=== PATIENT | male | born 1975 | race Caucasian/White ===

== ENCOUNTER 2016-04-02 20:47 | Emergency (ER) | payer MEDICAID ==
--- NOTE | ~2016-04-02 | EKG ---
PATIENT: KEVIN HUMPHREYS UNIT #: [id number] Ventricular Rate: 97 BPM Atrial Rate: 97 BPM P-R Interval: 162 ms QRS Duration: 88 ms Q-T Interval: 370 ms QTC Calculation(Bezet): 469 ms P [place]: 45 degrees Calculated R [place]: 33 degrees Calculated T [place]: 30 degrees Diagnosis Line: Normal sinus rhythm Diagnosis Line: Normal ECG Diagnosis Line: Diagnosis Line: Confirmed by JAKE AMBROSIO MD ([id number]) on 04/03/2016 Diagnosis Line: 6:03:34 PM INTERPRETING MD: DAILY KINCAID
--- NOTE | ~2016-04-02 | CR63 ---
[facility] A Service of [facility] & [facility] RADIOLOGY TEXT RESULTS PATIENT: KEVIN HUMPHREYS LOCATION: SED : 77 UNIT #: [id number] AGE: [address]: Andreas Xiong MD SEX: M ORDER DR: [id number] [place] [id number] MR#: [id number] #: [id number] NAME: KEVIN HUMPHREYS. : 1975 SEX: M STUDY DATE/TIME: 04/02/2016 20:18 UNIT: SED ROOM: STUDY DESCRIPTION: CR Chest 2 View Attending Physician: Andreas Xiong M.D. Ordering Physician: Andreas Xiong M.D. Primary Care Physician: Alexus Reis M.D. MEDICAL IMAGING REPORT This report is preliminary unless electronic signature is present. EXAM Two-view chest HISTORY 40-year-old male with or alcohol withdrawal, shaking. COMPARISON 01/26/2016 FINDINGS 2 views of the chest demonstrates mild pulmonary hyperinflation suggesting underlying emphysema. Mild prominence of the interstitial markings may indicate fibrosis. No acute airspace disease or consolidation. No effusions. Heart, mediastinum, great vessels and bony thorax unremarkable. IMPRESSION Pulmonary parenchymal changes compatible mild emphysema and fibrosis. No acute findings. Dictated by... Karol Sloan M.D. THIS IS AN ELECTRONICALLY VERIFIED REPORT Karol Sloan M.D. at 04/03/2016 5:03 PM Gregg TD: 04/03/2016 08:11 JOB #: [id number] MEDICAL IMAGING REPORT
[2016-04-02 20:44] LABS: HEMATOCRIT 38.6 % (38.0-50.0); HEMOGLOBIN 13.3 gm/dL (13.0-16.0); LYMPHOCYTE# 0.5 X10e3 (1.0-3.5); NEUTROPHIL# 5.3 X10e3 (1.5-7.1); RED BLOOD COUNT 4.12 X10e (3.90-5.60)
[2016-04-02 20:46] LABS: BASOPHIL% 0.6 % (0-2.5); EOSINOPHIL% 0.3 % (0.0-7.0); LYMPHOCYTE% 7.2 % (17.0-45.0); MEAN CELL VOLUME 93.8 FL (83-96); MEAN CORPUSCULAR HEMOGLOBIN 32.4 PG (28-34); MEAN CORPUSCULAR HGB CONC 34.5 g/dL (30-36); MEAN PLATELET VOLUME 9.2 FL (6.5-11.5); MONOCYTE% 13.9 % (3.0-12.0); RED CELL DISTRIBUTION WIDTH 18.3 % (11.0-15.5); WHITE BLOOD COUNT 6.9 X10e3 (4.0-10.5)
[2016-04-02 20:47] LABS: DIFF IND NO; PLATELET COUNT 37 X10e3 (140-420)
[~2016-04-02 20:47] MED LIST: ASPIRIN81 MG PO; CUBICIN IV; GLYBURIDE2.5 M1 PO; MAGOX 400400 MG PO; MULTI-VITAMIN1 EAC1 PO; NO MEDICATIONS; ONE-A-DAY WEIGH1 TAB PO; PENTOXIFYLINE100 GM MC; SLEEPING TABLET25 M1 PO; ZINC SULFATE220 M1 PO
[2016-04-02 21:02] LABS: ALKALINE PHOSPHATASE 219 U/L (32-92); ALT (SGPT) 80 U/L (10-40); AST (SGOT) 151 U/L (10-42); BILIRUBIN, DIRECT 1.7 mg/dL (0.0-0.2); BILIRUBIN,INDIRECT 1.7 mg/dL (0.0-0.9); BILIRUBIN,TOTAL 3.4 mg/dL (0.2-2.0); BLOOD UREA NITROGEN 7 mg/dL (9-23); BUN/CREATININE RATIO 11.66; CALCIUM SERUM 9.1 mg/dL (8.4-10.2); CARBON DIOXIDE 25 mmol/L (22-31); CHLORIDE 90 mmol/L (100-111); CPK (CREATINE PHOSPHOKINASE) 239 IU/L (36-174); CREATININE SERUM 0.6 mg/dL (0.6-1.4); GLOM FILT RATE Estimated ABOVE60 mL/min (>60); GLUCOSE FASTING 115 mg/dL (70-110); LIPASE 77 U/L (22-51); MAGNESIUM 1.2 mg/dL (1.6-3.0); POTASSIUM 3.6 mmol/L (3.5-5.1); SODIUM 129 mmol/L (135-145)
[2016-04-02 21:05] LABS: ALCOHOL BLOOD <5 mg/dL (0)
[2016-04-02 21:09] LABS: POC - CKMB 1.9 ng/mL (0.0-7.9); POC - TROPONIN <0.05 ng/mL (<=0.05)
[2016-04-02 21:37] LABS: URINE SOURCE CLEAN CATCH
[2016-04-02 21:40] LABS: URINE APPEARANCE CLEAR; URINE BILIRUBIN NEG (NEG); URINE BLOOD 1+ (NEG); URINE COLOR YELLOW; URINE LEUKOCYTE ESTERASE NEG (NEG); URINE NITRATE NEG (NEG); URINE PROTEIN 1+ (NEG); URINE UROBILINOGEN >=8.0 MG/DL (NORM)
[2016-04-02 21:47] LABS: MICRO INDICATED? YES; URINE GLUCOSE 50 MG/DL (NORM); URINE KETONE 2+ (NEG)
[2016-04-02 21:48] LABS: CULTURE INDICATED? NO; URINE BACTERIA NEG (NEG); URINE SQUAMOUS EPITHELIAL CELL FEW /[HPF]; URINE WBC 0-2 /[HPF] (0-5)
[2016-04-02 21:51] LABS: AMPHETAMINE NEG (NEG); BARBITURATES NEG (NEG); BENZODIAZEPINES NEG (NEG); COCAINE NEG (NEG); MARIJUANA NEG (NEG); OPIATES NEG (NEG); TRICYCLIC ANTIDEPRESSANTS NEG (NEG); U METHADONE NEG (NEG)
== END 2016-04-03 09:28 ==
LOC: SED 20:47
PROVIDERS: Emergency Medicine
DX: F10.239 Alcohol dependence with withdrawal, unspecified (principal); E11.9 Type 2 diabetes mellitus without complications; E86.0 Dehydration; D69.6 Thrombocytopenia, unspecified; E83.42 Hypomagnesemia
CPT/HCPCS: 36415; 71020; 80048; 80076; 80307; 81003; 82550; 82553; 82947; 83690; 83735; 83874; 84484; 85025; 93005; 96361; 96365; 96374; 96375; 99284; G0480; J2060; J3411; J3475

== ENCOUNTER 2016-04-03 10:27 | Inpatient (IN) | payer MEDICAID ==
--- NOTE | ~2016-04-03 | PA ---
Unit #: [id number] #: [id number] Patient: KEVIN HUMPHREYS [id number] [facility] [address] [place] [address] [id number] I MR#: [id number] NAME: KEVIN HUMPHREYS. ROOM: [facility] Age: 40 Sex: M Admission Date: 04/03/2016 : 1975 Date of Assessment: 04/03/2016 Attending Physician: Flavia Boles M.D. Admitting Physician: Flavia Boles M.D. Primary Care Physician: Alexus Reis M.D. PSYCHIATRIC ASSESSMENT DATE OF SERVICE 04/03/2016. IDENTIFYING DATA Mr. James Bahena is a 40-year-old, single, male, who is a resident of [place], [place] and was transferred to from [facility]. CHIEF COMPLAINT "I want treatment for alcohol abuse." HISTORY OF PRESENT ILLNESS Mr. James Bahena is a 40-year-old male, who was transferred to us from [facility] where he presented to the emergency room stating that he wants detox from alcohol and had a CIWA score of 16 indicating significant withdrawal from alcohol. He states that he has been drinking 6 or more beers a day and has been drinking this amount for about a month and a half and reports 9 month sobriety, ending about a month and a half ago and reports significant withdrawal symptoms including abdominal cramps, visible tremors, cold sweats, headaches, vomiting, anxiety, flushed face, restlessness, irritability, inability to perform activities of daily living, and poor personal hygiene. He reports history of withdrawal seizures and does endorse some significant depression, anxiety, irritability, and restlessness and denies any suicidal ideations, intent, or plan. SUBSTANCE ABUSE HISTORY The patient reports history of alcohol dependence. He reports that he has been drinking 16 plus beers a day and has been drinking since he was 15 years old and has a history of sobriety in the past. He denies any drug abuse. PAST PSYCHIATRIC HISTORY The patient has a history of inpatient [facility] past, but currently is not active in any treatment program, is not seeing a psychiatrist, not taking any psychotropic medications. PAST MEDICAL HISTORY Diabetes mellitus. ALLERGIES No known medication allergies. Unit #: [id number] #: [id number] Patient: KEVIN HUMPHREYS PERSONAL AND SOCIAL HISTORY A 40-year-old male, who reports that he is single, unemployed, and lives at home with his sister and has poor social support system. MENTAL STATUS EXAMINATION Middle-aged male, who was casually dressed with fair personal hygiene, appears to be in no acute distress or discomfort. He was awake and alert on interaction with intact orientation to time, place, and person. His mood was anxious and depressed with a congruent affect. His speech was slow and restricted in content. His thought processes were disorganized with some looseness of associations and flight of ideas. His insight and judgment remain significantly impaired. DIAGNOSTIC IMPRESSION Psychiatric: Alcohol dependence, moderate and acute withdrawals; alcohol-induced mood disorder. Medical: Diabetes mellitus. Stressors: Moderate psychosocial stressors. TREATMENT PLAN 1. The patient has presented with a history of substance abuse and mood disorder, and has been decompensating and will need inpatient hospitalization for detoxification, safety, and stabilization. We will start him on alcohol detox protocol. We will closely monitor for any worsening withdrawal symptoms. 2. Supportive therapy was provided to the patient. 3. Safe, structured, and nourishing environment will be provided. ESTIMATED LENGTH OF STAY 5 to 7 days. ABILITY TO HELP SELF Limited. WILLINGNESS TO HELP SELF The patient appears to be willing to help self. STRENGTHS 1. Communicative. 2. Cooperative. PROBLEMS 1. Chronic dysphoric symptoms. 2. Chronic chemical dependency. 3. Poor social support system. DISCHARGE CRITERIA This will be contingent upon the patient's ability to go through detox without having any significant withdrawal symptoms and his ability to stay safe to himself, particularly after discharge from the hospital. Dictated by... Flavia Boles M.D. IAA/modl Unit #: [id number] #: [id number] Patient: KEVIN HUMPHREYS TD: 04/04/2016 07:34 JOB #: [id number] PSYCHIATRIC ASSESSMENT X Afaq,Irfan A MD X PSYCHIATRIC ASSESSMENT
--- NOTE | ~2016-04-03 | PN ---
Unit #: [id number] #: [id number] Patient: KEVIN HUMPHREYS [id number] [facility] [address] [place] [address] [id number] I MR#: [id number] NAME: KEVIN HUMPHREYS. ROOM: [facility] Age: 40 Sex: M Admission Date: 04/03/2016 : 1975 Attending Physician: Flavia Boles M.D. Admitting Physician: Flavia Boles M.D. Primary Care Physician: Velma Mcbride PROGRESS NOTES DATE April 04, 2016 DISCUSSION Mr. James Bahena is a 40-year-old male, who was seen today and chart was reviewed and the case was discussed with the staff. He was seen to be anxious, withdrawn, unkept, and disheveled and seclusive to himself and he expressed discomfort as he goes through the detox. Meanwhile, he has been taking the medications and tolerating them fairly well with no reported side effects. MENTAL STATUS EXAMINATION Young male, who was casually dressed with marginal personal hygiene and appears to be in no acute distress or discomfort. He was awake and alert with impaired attention and concentration. His mood is anxious with a congruent affect. His speech is slow and restricted in content. His thought processes are disorganized with some looseness of associations and paranoid ideations. His insight and judgment remain significantly impaired. TREATMENT PLAN 1. We will continue him on his current medications and treatment protocol, and will monitor his response to the medications, and make further adjustments as needed. 2. We will continue to followup. Dictated by... Velma Hubbard/carlene TD: 04/05/2016 12:36 JOB #: [id number] Unit #: [id number] #: [id number] Patient: KEVIN HUMPHREYSTISHA PROGRESS NOTES X Flavia Boles MD PROGRESS NOTE
--- NOTE | ~2016-04-03 | PN ---
Unit #: [id number] #: [id number] Patient: KEVIN HUMPHREYS [id number] [facility] [address] [place] [address] [id number] I MR#: [id number] NAME: KEVIN HUMPHREYS. ROOM: [facility] Age: 40 Sex: M Admission Date: 04/03/2016 : 1975 Attending Physician: Flavia Boles M.D. Admitting Physician: Flavia Boles M.D. Primary Care Physician: Alexus Reis M.D. [facility] PROGRESS NOTES DATE OF SERVICE: 04/07/2016 SUBJECTIVE Mr. James Bahena is a 40-year-old male who was seen today and chart was reviewed, and case was discussed with the staff. He has been in acute delirium tremens as part of his detox and he was confused, anxious, restless, disorganized, actively hallucinating, unable to give any meaningful conversation and has been exhibiting poor personal hygiene and his whole room has significant odor where you cannot even enter his room. MENTAL STATUS EXAMINATION Young male who was casually dressed with a poor personal hygiene and appears to be in slight distress or discomfort. He was awake and alert with impaired attention. Concentration seemed confused and disoriented to time, place, and person. His mood was anxious with a congruent affect. His speech is slow and restricted in content. His thought processes were disorganized with some looseness of associations, paranoid ideations, and auditory hallucinations and visual hallucinations. His insight and judgment remain significantly impaired. TREATMENT PLAN 1. We will continue him on his current medications and treatment protocol. We will maintain the detox medications. 2. We will continue to follow up. Dictated by... Flavia Boles M.D. IAA/modl TD: 04/08/2016 01:38 JOB #: [id number] Unit #: [id number] #: [id number] Patient: KEVIN HUMPHREYS PROGRESS NOTES X Flavia Boles MD X PROGRESS NOTE
--- NOTE | ~2016-04-03 | PN ---
Unit #: [id number] #: [id number] Patient: KEVIN HUMPHREYS [id number] [facility] [address] [place] [address] [id number] I MR#: [id number] NAME: KEVIN HUMPHREYS ROOM: P206 Age: 40 Sex: M Admission Date: 04/03/2016 : 1975 Attending Physician: Flavia Boles M.D. Admitting Physician: Flavia Boles M.D. Primary Care Physician: Velma Mcbride PROGRESS NOTES DATE OF SERVICE: 04/09/2016 SUBJECTIVE Mr. Bahena is a 40-year-old male who was seen today and chart was reviewed, and case was discussed with the staff. He has been anxious, withdrawn, and rather seclusive to himself. Meanwhile, he has been cooperative with treatment recommendations and has been taking the medications and tolerating them fairly well with no reported side effects. MENTAL STATUS EXAMINATION Young male who was casually dressed with a poor personal hygiene and appears to be in no acute distress or discomfort. He was awake and alert with intact orientation. His mood was anxious with a congruent affect. He denies any suicidal or homicidal ideations. His insight and judgment remain slightly impaired. TREATMENT PLAN We will continue him on his current treatment protocol. We will monitor his response and make further adjustments as needed. Dictated by... Velma Hubbard/mia TD: 04/11/2016 03:12 JOB #: [id number] [facility] PROGRESS NOTES X Flavia Boles MD PROGRESS NOTE
--- NOTE | ~2016-04-03 | PN ---
Unit #: [id number] #: [id number] Patient: KEVIN HUMPHREYS [id number] [facility] [address] [place] [address] [id number] I MR#: [id number] NAME: KEVIN HUMPHREYS. ROOM: [facility] Age: 40 Sex: M Admission Date: 04/03/2016 : 1975 Attending Physician: Flavia Boles M.D. Admitting Physician: Flavia Boles M.D. Primary Care Physician: Vemla Mcbride PROGRESS NOTES DATE April 05, 2016 DISCUSSION Mr. James Bahena is a 40-year-old male, with substance abuse and mood disorder, who was seen today and chart was reviewed and the case was discussed with the staff. Staff reports that the patient has been anxious, withdrawn, and rather seclusive to himself. Meanwhile, he has been cooperative with the treatment recommendations and he has been taking the medications and tolerating them fairly well. MENTAL STATUS EXAMINATION Middle-aged male, who was casually dressed with marginal personal hygiene and appears to be in no acute distress or discomfort. He was awake and alert with impaired attention and concentration. His mood was anxious with a congruent affect. His speech is slow and restricted in content. His thought processes are disorganized with some looseness of associations. His insight and judgment remain significantly impaired. TREATMENT PLAN We will continue him on his current medications and detox protocol, and will monitor his response, and make further adjustments as needed. Dictated by... Velma Hubbard/carlene TD: 04/06/2016 12:31 JOB #: [id number] Unit #: [id number] #: [id number] Patient: KEVIN HUMPHREYSTISHA PROGRESS NOTES X Flavia Boles MD PROGRESS NOTE
--- NOTE | ~2016-04-03 | PN ---
Unit #: [id number] #: [id number] Patient: KEVIN HUMPHREYS [id number] [facility] [address] [place] [address] [id number] MR#: [id number] NAME: KEVIN HUMPHREYS ROOM: P206 Age: 40 Sex: M Admission Date: 04/03/2016 : 1975 Attending Physician: Flavia Boles M.D. Admitting Physician: Flavia Boles M.D. Primary Care Physician: Velma Mcbride PROGRESS NOTES DATE OF SERVICE: 04/11/2016 SUBJECTIVE Mr. James Bahena is a 40-year-old male, who was seen today and chart was reviewed and the case was discussed with the staff. He has been doing better and has been calm and cooperative and appears to be coming out of the detox without any complications. He has been taking the medications and tolerating them fairly well. MENTAL STATUS EXAMINATION Young male, who was casually dressed with fair personal hygiene, appears to be in no acute distress or discomfort. He was awake and alert on interaction with intact orientation. His mood was anxious with a congruent affect. He denies any suicidal or homicidal ideations. His insight and judgment remain slightly impaired. TREATMENT PLAN 1. We will continue him on his current medications and treatment protocol. We will monitor his response to the medications and make further adjustments as needed. 2. We will continue to follow up. Dictated by... Velma Hubbard/mia TD: 04/13/2016 10:04 JOB #: [id number] [facility] PROGRESS NOTES X Flavia Boles MD PROGRESS NOTE
--- NOTE | ~2016-04-03 | HP ---
Unit #: [id number] #: [id number] Patient: KEVIN HUMPHREYS [id number] [place] [address] [id number] MR#: [id number] NAME: KEVIN HUMPHREYS. ROOM: [facility] Age: 40 Sex: M Admission Date: 04/03/2016 : 1975 Attending Physician: Flavia Boles M.D. Admitting Physician: Flavia Boles M.D. Primary Care Physician: Alexus Reis M.D. HISTORY AND PHYSICAL HISTORY OF PRESENT ILLNESS Kevin is a 40 year old admitted to [address] [place] [address] because of his abuse of alcohol. He is detoxing. PAST MEDICAL HISTORY 1. Long history of alcohol abuse. 2. History of withdrawal seizures. 3. Diabetes mellitus. PAST SURGICAL HISTORY Nothing reported. ALLERGIES No known drug allergies. SOCIAL HISTORY Smokes less than one pack per day. Drinks a fifth of liquor on a daily basis. Denies illicit drug use. FAMILY HISTORY Medically noncontributory. REVIEW OF SYSTEMS CONSTITUTIONAL: No fever or chills. HEENT: Denies any sore throat, ear pain or runny nose. CARDIOVASCULAR: Denies chest pain, irregular heart rhythm or palpitations. CHEST: Denies shortness of breath or cough. No hemoptysis. GASTROINTESTINAL: Denies nausea, vomiting, diarrhea or chronic constipation. ENDOCRINE: Denies history of increased thirst or urination. No recent significant weight loss or gain. GENITOURINARY: Denies dysuria, frequency, or hematuria. SKIN: Denies any rashes. HEMATOLOGIC: Denies history of increased bleeding or bruising. MUSCULOSKELETAL: Denies any hot, swollen joints. No generalized muscle pain. NEUROLOGIC: Denies problems with vision or speech. No frequent, severe headaches. No numbness, tingling or weakness in any extremities. Denies loss of bladder or bowel control. CURRENT MEDICATIONS Unit #: [id number] #: [id number] Patient: KEVIN HUMPHREYS Detox protocol PHYSICAL EXAMINATION GENERAL: Alert, well-nourished, in no apparent distress. VITAL SIGNS: Blood pressure 158/96, heart rate 80, respirations 16, temperature 98.6. WEIGHT: 172 pounds. HEIGHT: 5'7". SKIN: Warm and dry without rash or lesion. HEENT: Normocephalic. TMs not viewed. Oral and nasal passages clear. Conjunctivae clear. Pupils equal, round and reactive to light and accommodation. Extraocular movements intact. NECK: Supple without lymphadenopathy or thyromegaly. HEART: Rate and rhythm is regular with a 3/6 blowing systolic murmur. LUNGS: Clear. ABDOMEN: Soft, nontender. : Not done. EXTREMITIES: No evidence of cyanosis, clubbing or edema. Moves all extremities without focal deficit. NEUROLOGICAL: Grossly within normal limits. Cranial Nerves: II: Visual murrieta are intact. III, IV AND : Extraocular movements are intact. Pupils are equal, round and reactive to light. V: Facial sensation is grossly normal. VII: Facial movements and expression are normal. VIII: Auditory acuity grossly intact. IX, X: Uvula is midline. Phonation is normal. XI: Patient shrugs shoulders and turns head normally. XII: Tongue protrudes in the midline. Sensory and Motor Function: Sensory and motor sensation is grossly normal. Motor: moves all extremities well. Coordination: Gait is normal. Deep Tendon Reflexes: Intact. IMPRESSION Psychiatric admission RECOMMENDATIONS PSYCHIATRIC: Per psychiatrist. MEDICAL: I see no contraindications to participating in facility's activities. MEDICAL PROGNOSIS Good. MEDICAL CONDITION Stable. Dictated by... Janette Lei P.A.-C. for Velma Lawrence/becca TD: 04/03/2016 22:28 JOB #: [id number] Unit #: [id number] #: [id number] Patient: KEVIN HUMPHREYS HISTORY AND PHYSICAL X Janette Lei HISTORY AND PHYSICAL
--- NOTE | ~2016-04-03 | PN ---
Unit #: [id number] #: [id number] Patient: KEVIN HUMPHREYS [id number] [facility] [address] [place] [address] [id number] I MR#: [id number] NAME: KEVIN HUMPHREYS ROOM: [facility] Age: 40 Sex: M Admission Date: 04/03/2016 : 1975 Attending Physician: Flavia Boles M.D. Admitting Physician: Flavia Boles M.D. Primary Care Physician: Velma Mcbride PROGRESS NOTES DATE April 06, 2016 DISCUSSION Mr. James Bahena is a 40-year-old male with alcohol dependence who was seen today and chart was reviewed and the case was discussed with the staff. Staff reports that the patient has not been doing good and has slowly started slipping into delirium tremens as he was seen to be anxious, unkept, disheveled, pacing the hallways and confused and disoriented and unable to carry on meaningful conversation and he was making statements that he left his car running outside and that he was later on seen to be actually hallucinating and was confused and disoriented and as such recommendation was made for stepping up the level of precautions as well as increasing the dosage of his Ativan and also adding antipsychotic therapy, and will monitor his response to treatment recommendations and make further adjustments as needed. Dictated by... Velma Hubbard/carlene TD: 04/07/2016 10:06 JOB #: [id number] [facility] PROGRESS NOTES X Flavia Boles MD PROGRESS NOTE
--- NOTE | ~2016-04-03 | PN ---
Unit #: [id number] #: [id number] Patient: KEVIN HUMPHREYS [id number] [facility] [address] [place] [address] [id number] MR#: [id number] NAME: KEVIN HUMPHREYS. ROOM: P206 Age: 40 Sex: M Admission Date: 04/03/2016 : 1975 Attending Physician: Flavia Boles M.D. Admitting Physician: Flavia Boles M.D. Primary Care Physician: Velma Mcbride PROGRESS NOTES DATE April 10, 2016 DISCUSSION Mr. Bahena is a 40-year-old male, who was seen today and chart was reviewed and the case was discussed with the staff. He has been anxious, withdrawn, and rather seclusive to himself. Meanwhile, he has been cooperative with the treatment recommendations and he has been taking the medications and tolerating them fairly well. MENTAL STATUS EXAMINATION Young male, who was casually dressed with fair personal hygiene and appears to be in no acute distress or discomfort. He was awake and alert on interaction with intact orientation. His mood is anxious with a congruent affect. He denies any suicidal or homicidal ideations, and also denies any auditory or visual hallucinations. His insight and judgment remain slightly impaired. TREATMENT PLAN 1. We will continue him on his current medications and treatment protocol, and will monitor his response to the medications, and make further adjustments as needed. 2. We will continue to followup. Dictated by... Velma Hubbard/carlene TD: 04/10/2016 12:12 JOB #: [id number] Unit #: [id number] #: [id number] Patient: KEVIN HUMPHREYS PROGRESS NOTES X Flavia Boles MD PROGRESS NOTE
--- NOTE | ~2016-04-03 | PN ---
Unit #: [id number] #: [id number] Patient: KEVIN HUMPHREYS [id number] [facility] [address] [place] [address] [id number] MR#: [id number] NAME: KEVIN HUMPHREYS. ROOM: P206 Age: 40 Sex: M Admission Date: 04/03/2016 : 1975 Attending Physician: Flavia Boles M.D. Admitting Physician: Flavia Boles M.D. Primary Care Physician: Velma Mcbride PROGRESS NOTES DATE April 08, 2016 DISCUSSION Mr. James Bahena is a 40-year-old male who was seen today and chart was reviewed and the case was discussed with the staff. He has been anxious, restless, unkept, disheveled, and tremulous and appeared to be making some progress but still having significant symptoms of delirium tremens and alcohol withdrawal syndrome. Meanwhile, he has been taking the medications and tolerating them fairly well. MENTAL STATUS EXAMINATION Young male, who was casually dressed with marginal personal hygiene and appears to be in no acute distress or discomfort. He was awake and alert with impaired attention and concentration. His mood is anxious with a congruent affect. His speech is slow and restricted in content. His thought processes are disorganized with some looseness of associations and paranoid ideations. His insight and judgment remain significantly impaired. TREATMENT PLAN 1. We will continue him on his current medications and treatment protocol, and will monitor his response to the medications, and make further adjustments as needed. 2. We will continue to followup. Dictated by... Velma Hubbard/carlene TD: 04/10/2016 12:05 JOB #: [id number] Unit #: [id number] #: [id number] Patient: KEVIN HUMPHREYS PROGRESS NOTES X Flavia Boles MD PROGRESS NOTE
--- NOTE | ~2016-04-03 | DS ---
Unit #: [id number] #: [id number] Patient: KEVIN HUMPHREYS [id number] [facility] [address] [place] [address] [id number] MR#: [id number] NAME: KEVIN HUMPHREYS. ROOM: P206 Age: 40 Sex: M Admission Date: 04/03/2016 : 1975 Discharge Date: 04/12/2016 Attending Physician: Flavia Boles M.D. Primary Care Physician: Alexus Reis M.D. DISCHARGE SUMMARY IDENTIFYING DATA Mr. James Bahena a 40-year-old single male, who is a resident of [place], [place], and was transferred to from [facility]. DISCHARGE DIAGNOSES Psychiatric: Alcohol dependence, moderate and acute withdrawals; alcohol-induced mood disorder. Medical: Diabetes mellitus. Stressors: Moderate psychosocial stressors. HISTORY OF PRESENT ILLNESS Please see initial psychiatric evaluation for details. PAST PSYCHIATRIC HISTORY Please see initial psychiatric evaluation for details. PAST MEDICAL HISTORY Please see initial psychiatric evaluation for details. HOSPITAL COURSE The patient was [facility] and was oriented to the hospital environment. Routine p.r.n. medications were initiated, and he was started back on his home medications and medications were adjusted and he was closely monitored. He started going into delirium tremens and had a rather very complicated detox and however, maintained on one-to-one level of precaution, and medications were adjusted quite regularly. However, he slowly started coming out of the detox with complete resolution of delirium tremens. Followed by which, it was decided that he will be discharged home and will continue treatment on an outpatient basis. DISCHARGE MEDICATIONS None. DISCHARGE CONDITION Stable. PROGNOSIS Fair. Dictated by... Flavia Boles M.D. Unit #: [id number] #: [id number] Patient: KEVIN HUMPHREYS IAA/modl TD: 04/13/2016 00:29 JOB #: [id number] DISCHARGE SUMMARY X Flavia Boles MD X DISCHARGE SUMMARY
[2016-04-04 09:51] LABS: EOSINOPHIL# 0.2 X10e3 (0-0.7); EOSINOPHIL% 4.5 % (0.0-7.0); HEMATOCRIT 36.1 % (38.0-50.0); HEMOGLOBIN 12.3 gm/dL (13.0-16.0); LYMPHOCYTE# 0.6 X10e3 (1.0-3.5); LYMPHOCYTE% 14.5 % (17.0-45.0); MEAN CELL VOLUME 96.5 FL (83-96); MEAN CORPUSCULAR HEMOGLOBIN 32.8 PG (28-34); MEAN PLATELET VOLUME 10.3 FL (6.5-11.5); MONOCYTE# 0.6 X10e3 (0-1.0); MONOCYTE% 14.3 % (3.0-12.0); NEUTROPHIL# 2.9 X10e3 (1.5-7.1); NEUTROPHIL% 65.7 % (40-75); RED BLOOD COUNT 3.74 X10e (3.90-5.60); RED CELL DISTRIBUTION WIDTH 17.9 % (11.0-15.5); WHITE BLOOD COUNT 4.4 X10e3 (4.0-10.5)
[2016-04-04 09:54] LABS: URINE APPEARANCE CLEAR; URINE BLOOD NEG (NEG); URINE COLOR DK YELLOW; URINE GLUCOSE >1000 MG/DL (NEG); URINE KETONE 1+ (NEG); URINE LEUKOCYTE ESTERASE NEG (NEG); URINE NITRATE NEG (NEG); URINE PH 7.5 (5-8); URINE PROTEIN NEG (NEG); URINE SPECIFIC GRAVITY 1.026 (1.003-1.035)
[2016-04-04 09:55] LABS: THYROID STIMULATING HORMONE 1.76 uIU/ml (0.34-5.60)
[2016-04-04 09:56] LABS: PLATELET COUNT 34 X10e3 (140-420)
[2016-04-04 09:57] LABS: DIFF IND NO
[2016-04-04 10:02] LABS: FREE THYROXIN (T4) 1.12 ng/dL (0.58-1.64)
[2016-04-04 10:03] LABS: ALBUMIN SERUM 3.4 g/dL (3.5-5.0); ALKALINE PHOSPHATASE 192 U/L (32-92); ALT (SGPT) 80 U/L (10-40); AST (SGOT) 154 U/L (10-42); BILIRUBIN,TOTAL 3.7 mg/dL (0.2-2.0); BLOOD UREA NITROGEN 8 mg/dL (9-23); BUN/CREATININE RATIO 11.42; CALCIUM SERUM 9.1 mg/dL (8.4-10.2); CARBON DIOXIDE 27 mmol/L (22-31); CHLORIDE 97 mmol/L (100-111); CREATININE SERUM 0.7 mg/dL (0.6-1.4); GLOM FILT RATE Estimated ABOVE60 mL/min (>60); GLUCOSE FASTING 281 mg/dL (70-110); POTASSIUM 3.9 mmol/L (3.5-5.1); PROTEIN TOTAL SERUM 6.9 g/dL (6.0-8.3); SODIUM 133 mmol/L (135-145)
[2016-04-04 10:03] LABS: URINE BILIRUBIN POS (NEG)
[2016-04-04 10:20] LABS: AMPHETAMINE NEG (NEG); BARBITURATES NEG (NEG); BENZODIAZEPINES POS (NEG); COCAINE NEG (NEG); MARIJUANA NEG (NEG); OPIATES NEG (NEG); TRICYCLIC ANTIDEPRESSANTS NEG (NEG); U METHADONE NEG (NEG)
== END 2016-04-12 10:20 | disposition home or self-care (01) | DRG 897 ==
LOC: POF 10:27 → P2S 10:36
PROVIDERS: Psychiatry & Neurology Psychiatry
PROC: HZ2ZZZZ Detoxification Services for Substance Abuse Treatment (ICD-10-PCS; principal; 2016-04-03)
DX: F10.239 Alcohol dependence with withdrawal, unspecified (principal); F10.231 Alcohol dependence with withdrawal delirium; F10.24 Alcohol dependence with alcohol-induced mood disorder; E11.9 Type 2 diabetes mellitus without complications; F17.200 Nicotine dependence, unspecified, uncomplicated
CPT/HCPCS: 80053; 80307; 81003; 82947; 84439; 84443; 85025; 86592; 90688

== ENCOUNTER 2016-09-14 01:12 | Inpatient (IN) | payer OTHER ==
[~2016-09-14] VITALS: Ht 170.2 cm; Wt 84.4 kg
--- NOTE | ~2016-09-14 | PA ---
Unit #: [id number] #: [id number] Patient: KEVIN HUMPHREYS [id number] [place] [address] [id number] I MR#: [id number] NAME: KEVIN HUMPHREYS ROOM: P208 Age: 41 Sex: M Admission Date: 09/14/2016 : 1975 Date of Assessment: 09/14/2016 Attending Physician: Jordon Doe M.D. Admitting Physician: Jordon Doe M.D. Primary Care Physician: Alexus Reis M.D. PSYCHIATRIC ASSESSMENT IDENTIFYING INFORMATION The patient is a 41-year-old male admitted to the [address] [place] [address] Unit for alcohol detox. CHIEF COMPLAINT Need to detox from alcohol. INFORMANT Patient, reliability is good. HISTORY OF PRESENT ILLNESS The patient is a 41-year-old single male admitted after he presented to this facility reporting ongoing abuse of alcohol. He was last admitted to this facility in February of this year under the care of Dr. Boles but maintains sobriety for only a brief period of time. The patient reports that he is drinking 7 to 8 "hard lemonades a day." The patient reports a history of DTs and seizures in the past. The patient denies any suicidal or homicidal ideation at this time. PAST PSYCHIATRIC HISTORY As above, the patient has been in chemical dependence treatment at this facility in the past. PAST MEDICAL HISTORY Significant for a history of peptic ulcer disease and thrombocytopenia. MEDICATIONS None. ALLERGIES None. FAMILY HISTORY Noncontributory. SOCIAL HISTORY The patient is employed doing constructions. He states he lives alone and reports substance use as noted previously. MENTAL STATUS EXAMINATION Examination at this time reveals the patient to be a somewhat disheveled male appearing his stated age. He is in no apparent physical distress at the time of the examination. He is awake, alert, and oriented Unit #: [id number] #: [id number] Patient: KEVIN HUMPHREYS in all spheres. His mood is mildly dysphoric, his affect congruent. Speech is generally well coherent. There are no gross deficits in memory or cognition noted. Intelligence is judged to be in the average range based on fund of knowledge. The patient is cooperative throughout the interview. He is currently denying suicidal or homicidal ideation or psychotic features. His judgment and insight appear to be intact. ASSETS AND LIABILITIES The patient's assets: Motivation for change. Liabilities: Lack of resources. DIAGNOSTIC IMPRESSION 1. Alcohol use disorder. 2. Thrombocytopenia. 3. Peptic ulcer disease. TREATMENT PLAN The patient remains hospitalized for safety and stabilization. Routine detoxification protocol for alcohol has been initiated. The patient's current platelet count is 36, and we will keep an eye on that. ESTIMATED LENGTH OF STAY 5 to 7 days. Dictated by... Jordon Doe M.D. CHRISTOPHER/myrna TD: 09/14/2016 14:21 JOB #: [id number] PSYCHIATRIC ASSESSMENT Page 1 of 1 X Jordon Doe MD X PSYCHIATRIC ASSESSMENT
--- NOTE | ~2016-09-14 | PN ---
Unit #: [id number] #: [id number] Patient: KEVIN HUMPHREYS [id number] [facility] [address] [place] [address] [id number] I MR#: [id number] NAME: KEVIN HUMPHREYS ROOM: P208 Age: 41 Sex: M Admission Date: 09/14/2016 : 1975 Attending Physician: Flavia Boles M.D. Admitting Physician: Flavia Boles M.D. Primary Care Physician: Velma Mcbride PROGRESS NOTES DATE September 15, 2016 DISCUSSION Mr. Velasquez is a 41-year-old male, who was seen today and chart was reviewed and the case was discussed with the staff. He has been anxious, restless, withdrawn, and confused and disorganized, and staff reports that he appears to be going into delirium tremens. Meanwhile, he has been taking the medications and tolerating them fairly well with no reported side effects. MENTAL STATUS EXAMINATION Middle-aged male, who was casually dressed with fair personal hygiene and appears to be in no acute distress or discomfort. He was awake and alert with impaired attention and concentration. His mood is anxious with a congruent affect. His speech is slow and restricted in content. His thought processes are disorganized with some looseness of associations. His insight and judgment remain significantly impaired. TREATMENT PLAN 1. We will continue him on his current medications and treatment protocol, and will monitor his response to the medications, and make further adjustments as needed. 2. We will continue to followup. Dictated by... Velma Hubbard/carlene TD: 09/15/2016 09:25 JOB #: [id number] Unit #: [id number] #: [id number] Patient: KEVIN HUMPHREYS PROGRESS NOTES Page 1 of 1 X Flavia Boles MD PROGRESS NOTE
--- NOTE | ~2016-09-14 | PN ---
Unit #: [id number] #: [id number] Patient: KEVIN HUMPHREYS [id number] [facility] [address] [place] [address] [id number] I MR#: [id number] NAME: KEVIN HUMPHREYS ROOM: P204 Age: 41 Sex: M Admission Date: 09/14/2016 : 1975 Attending Physician: Flavia Boles M.D. Admitting Physician: Flavia Boles M.D. Primary Care Physician: Velma Mcbride PROGRESS NOTES DATE 09/19/2016 DISCUSSION Mr. Ramirez is a 41-year-old male who was seen today and chart was reviewed and case was discussed with the staff. He appears to be somewhat calmer and has been showing some improvement in his delirium tremens and acute confusional state and no agitation or aggression has been reported. He has been taking medications and tolerating them fairly well with no reported side effects. MENTAL STATUS EXAMINATION Middle-aged male who was casually dressed with fair personal hygiene and appears to be in no acute distress or discomfort. He was awake and alert with impaired attention and concentration. His mood was anxious with congruent affect. His speech is slow and tangential. His thought processes were disorganized with ____ associations and flight of ideas. His insight and judgement remains significantly impaired. TREATMENT PLAN 1. Will continue on current medications and treatment protocol. Will monitor his response to the medications and make further adjustments as needed. 2. Will continue to follow up. Dictated by... Velma Hubbard/golden TD: 09/19/2016 21:31 JOB #: [id number] Unit #: [id number] #: [id number] Patient: KEVIN HUMPHREYS PROGRESS NOTES Page 1 of 1 X Flavia Boles MD X PROGRESS NOTE
--- NOTE | ~2016-09-14 | DS ---
Unit #: [id number] #: [id number] Patient: KEVIN HUMPHREYS [id number] [facility] [address] [place] [address] [id number] I MR#: [id number] NAME: KEVIN HUMPHREYS ROOM: P204 Age: 41 Sex: M Admission Date: 09/14/2016 : 1975 Discharge Date: 09/20/2016 Attending Physician: Flavia Boles M.D. Primary Care Physician: Alexus Reis M.D. DISCHARGE SUMMARY IDENTIFICATION DATA Mr. Ramirez is a 41-year-old male who is known to us from previous encounter and was self-referred to the hospital (1) __. DISCHARGE DIAGNOSES PSYCHIATRIC: Alcohol dependence, moderate, in acute withdrawal. Alcohol-induced mood disorder. MEDICAL: Peptic ulcer disease. STRESSORS: Mild psychosocial stressors. HISTORY OF PRESENT ILLNESS Same as in initial psychiatric evaluation. PAST PSYCHIATRIC HISTORY Same as in initial psychiatric evaluation. PAST MEDICAL HISTORY Same as in initial psychiatric evaluation. HOSPITAL COURSE The patient [facility] and was oriented to the hospital environment. Routine p.r.n. medications were initiated, and he was started back on his home medications, and detox protocol was initiated as well. However, the patient once again started going into delirium tremens and was seen to be confused and anxious, and due to end up receiving intramuscular injection of Geodon due to his agitation and aggression. However, he was taking the medications regularly and was tolerating them fairly well and is able to slowly come out of the detox without any complications and is willing to continue treatment on outpatient basis and was denying any suicidal ideations, intent, or plan and was not seen to be a danger to self or anyone else and as such it was decided that he will be discharged, and we will continue treatment on outpatient basis. DISCHARGE MEDICATIONS Glucophage 500 mg twice a day for diabetes. CONDITION AT DISCHARGE Stable. PROGNOSIS Fair. Unit #: [id number] #: [id number] Patient: KEVIN HUMPHREYS Dictated by... Flavia Boles M.D. IAA/bzg TD: 09/21/2016 07:58 JOB #: [id number] DISCHARGE SUMMARY Page 1 of 1 X Flavia Boles MD DISCHARGE SUMMARY
--- NOTE | ~2016-09-14 | HP ---
Unit #: [id number] #: [id number] Patient: KEVIN HUMPHREYS [id number] [place] [address] [id number] I MR#: [id number] NAME: KEVIN HUMPHREYS ROOM: P208 Age: 41 Sex: M Admission Date: 09/14/2016 : 1975 Attending Physician: Jordon Doe M.D. Admitting Physician: Jordon Doe M.D. Primary Care Physician: Alexus Reis M.D. HISTORY AND PHYSICAL HISTORY OF PRESENT ILLNESS Kevin is a 41 year old admitted to [address] [place] [address] because of his continued abuse of alcohol. He has had other admissions to this facility for the same. PAST MEDICAL HISTORY 1. Long history of alcohol abuse. 2. History of withdrawal seizures. 3. Diabetes mellitus. PAST SURGICAL HISTORY Nothing reported. ALLERGIES No known drug allergies. SOCIAL HISTORY Smokes one pack per day. Drinks at least a 12 pack of beer on a daily basis and denies illicit drug use. FAMILY HISTORY Medically noncontributory. REVIEW OF SYSTEMS CONSTITUTIONAL: No fever or chills. HEENT: Denies any sore throat, ear pain or runny nose. CARDIOVASCULAR: Denies chest pain, irregular heart rhythm or palpitations. CHEST: Denies shortness of breath or cough. No hemoptysis. GASTROINTESTINAL: Denies nausea, vomiting, diarrhea or chronic constipation. ENDOCRINE: Denies history of increased thirst or urination. No recent significant weight loss or gain. GENITOURINARY: Denies dysuria, frequency, or hematuria. SKIN: Denies any rashes. HEMATOLOGIC: Denies history of increased bleeding or bruising. MUSCULOSKELETAL: Denies any hot, swollen joints. No generalized muscle pain. NEUROLOGIC: Denies problems with vision or speech. No frequent, severe headaches. No numbness, tingling or weakness in any extremities. Denies loss of bladder or bowel control. CURRENT MEDICATIONS Unit #: [id number] #: [id number] Patient: KEVIN HUMPHREYS 1. Detox protocol 2. Glucophage 500 mg b.i.d. PHYSICAL EXAMINATION GENERAL: Alert, well-nourished, in no apparent distress. VITAL SIGNS: Blood pressure 130/82, heart rate 80, respirations 16, temperature 98.6. WEIGHT: 186. HEIGHT: 5 foot 7 inches. SKIN: Warm and dry without rash or lesion. HEENT: Normocephalic. TMs not viewed. Oral and nasal passages clear. Conjunctivae clear. Pupils equal, round and reactive to light and accommodation. Extraocular movements intact. NECK: Supple without lymphadenopathy or thyromegaly. HEART: Rate and rhythm is regular with a 3/6 blowing systolic murmur. LUNGS: Clear. ABDOMEN: Soft, nontender. : Not done. EXTREMITIES: No evidence of cyanosis, clubbing or edema. Moves all extremities without focal deficit. NEUROLOGICAL: Grossly within normal limits. Cranial Nerves: II: Visual murrieta are intact. III, IV AND : Extraocular movements are intact. Pupils are equal, round and reactive to light. V: Facial sensation is grossly normal. VII: Facial movements and expression are normal. VIII: Auditory acuity grossly intact. IX, X: Uvula is midline. Phonation is normal. XI: Patient shrugs shoulders and turns head normally. XII: Tongue protrudes in the midline. Sensory and Motor Function: Sensory and motor sensation is grossly normal. Motor: moves all extremities well. Coordination: Gait is normal. Deep Tendon Reflexes: Intact. IMPRESSION Psychiatric admission. RECOMMENDATIONS PSYCHIATRIC: Per psychiatrist. MEDICAL: 1. I see no contraindications to participating in facility's activities. 2. Detox per protocol. MEDICAL PROGNOSIS Good. MEDICAL CONDITION Stable. Dictated by... Janette Lei P.A.-C. for Velma Lawrence Unit #: [id number] #: [id number] Patient: KEVIN HUMPHREYS TD: 09/15/2016 00:33 JOB #: [id number] HISTORY AND PHYSICAL Page 1 of 1 X Janette Lei HISTORY AND PHYSICAL
--- NOTE | ~2016-09-14 | PN ---
Unit #: [id number] #: [id number] Patient: KEVIN HUMPHREYS [id number] [facility] [address] [place] [address] [id number] I MR#: [id number] NAME: KEVIN HUMPHREYS ROOM: P204 Age: 41 Sex: M Admission Date: 09/14/2016 : 1975 Attending Physician: Flavia Boles M.D. Admitting Physician: Flavia Boles M.D. Primary Care Physician: Velma Mcbride PROGRESS NOTES DATE September 17, 2016 DISCUSSION Mr. Ramirez is a 50-year-old male, who was seen today and chart was reviewed and the case was discussed with the staff. He appears to be in acute delirium tremens and yesterday had agitation and aggression, and psychosis and hostility and required an injection of Geodon and Ativan had to be given, for his psychosis. Meanwhile, he remains anxious, withdrawn, confused, disorganized, unkept, and disheveled and was unable to carry on any meaningful conversation. We will continue with his current medications and level of precaution and will monitor his response and make further adjustments as needed. Dictated by... Velma Hubbard/carlene TD: 09/18/2016 06:07 JOB #: [id number] [facility] PROGRESS NOTES Page 1 of 1 X Flavia Boles MD X PROGRESS NOTE
--- NOTE | ~2016-09-14 | PN ---
Unit #: [id number] #: [id number] Patient: KEVIN HUMPHREYS [id number] [facility] [address] [place] [address] [id number] I MR#: [id number] NAME: KEVIN HUMPHREYS ROOM: P204 Age: 41 Sex: M Admission Date: 09/14/2016 : 1975 Attending Physician: Flavia Boles M.D. Admitting Physician: Flavia Boles M.D. Primary Care Physician: Alexus Reis M.D. PEATISHA PROGRESS NOTES DATE 09/18/2016 DISCUSSION Mr. Ramirez is a 41-year-old, male who was seen today and chart was reviewed and case was discussed with the staff. He remains anxious, withdrawn and disorganized. Meanwhile, he has been taking medication and tolerating them fairly well with no reported side effects. MENTAL STATUS EXAM Middle-aged male who was casually dressed with fair personal hygiene, appears to be in no acute distress or discomfort. He was awake and alert with impaired attention and concentration. His mood was anxious with congruent affect. He denies any suicidal or homicidal ideation. His insight and judgement remains slightly impaired. TREATMENT PLAN 1. We will continue him on his current treatment protocol. We will monitor his response to the medication and make further adjustments as needed. 2. We will continue to follow up. Dictated by... Velma Hubbard/becca TD: 09/19/2016 03:40 JOB #: [id number] Unit #: [id number] #: [id number] Patient: KEVIN HUMPHREYS PROGRESS NOTES Page 1 of 1 X Flavia Boles MD X PROGRESS NOTE
--- NOTE | ~2016-09-14 | PN ---
Unit #: [id number] #: [id number] Patient: KEVIN HUMPHREYS [id number] [facility] [address] [place] [address] [id number] I MR#: [id number] NAME: KEVIN HUMPHREYS ROOM: P204 Age: 41 Sex: M Admission Date: 09/14/2016 : 1975 Attending Physician: Flavia Boles M.D. Admitting Physician: Flavia Boles M.D. Primary Care Physician: Velma Mcbride PROGRESS NOTES DATE 09/16/2016 DISCUSSION Mr. Ramirez is a 41-year-old male who was seen today and chart was reviewed and case was discussed with the staff. He remains anxious, withdrawn, disorganized, confused and paranoid and delusional and has not been making much sense as he was laying in his bed and was unable to carry on meaningful conversation and then started making statements that someone stole his truck from outside. Meanwhile, he has been taking medications and tolerating them fairly well with no reported side effects. MENTAL STATUS EXAMINATION Middle-aged male who was casually dressed with marginal personal hygiene and appears to be in no acute distress or discomfort. He was awake and alert with impaired attention and concentration. His mood was anxious with congruent affect. His speech is slow and tangential. His thought processes were disorganized with some looseness of associations and paranoid ideations. His insight and judgement remains significantly impaired. TREATMENT PLAN 1. Will continue his current medications and treatment protocol. Will monitor his response to medications and make further adjustments as needed. 2. Will continue to follow up. Dictated by... Velma Hubbard/golden TD: 09/16/2016 20:58 JOB #: [id number] Unit #: [id number] #: [id number] Patient: KEVIN HUMPHREYS PROGRESS NOTES Page 1 of 1 X Flavia Boles MD X PROGRESS NOTE
[2016-09-14 09:47] LABS: ALBUMIN SERUM 3.6 g/dL (3.5-5.0); CALCIUM SERUM 8.4 mg/dL (8.4-10.2); CREATININE SERUM 0.4 mg/dL (0.6-1.4); GLOM FILT RATE Estimated 148.6 mL/min (>60); POTASSIUM 3.6 mmol/L (3.5-5.1); PROTEIN TOTAL SERUM 7.1 g/dL (6.0-8.3)
[2016-09-14 10:02] LABS: BASOPHIL% 0.9 % (0-2.5); EOSINOPHIL% 1.2 % (0.0-7.0); HEMATOCRIT 36.5 % (38.0-50.0); HEMOGLOBIN 12.3 gm/dL (13.0-16.0); LYMPHOCYTE# 1.3 X10e3 (1.0-3.5); LYMPHOCYTE% 34.2 % (17.0-45.0); MEAN CELL VOLUME 91.7 FL (83-96); MEAN CORPUSCULAR HEMOGLOBIN 30.8 PG (28-34); MEAN CORPUSCULAR HGB CONC 33.6 g/dL (30-36); MEAN PLATELET VOLUME 9.3 FL (6.5-11.5); MONOCYTE# 0.5 X10e3 (0-1.0); MONOCYTE% 14.5 % (3.0-12.0); NEUTROPHIL# 1.8 X10e3 (1.5-7.1); NEUTROPHIL% 49.2 % (40-75); RED BLOOD COUNT 3.98 X10e (3.90-5.60); RED CELL DISTRIBUTION WIDTH 16.7 % (11.0-15.5); WHITE BLOOD COUNT 3.7 X10e3 (4.0-10.5)
[2016-09-14 10:45] LABS: PLATELET COUNT 36 X10e3 (140-420)
[2016-09-14 10:46] LABS: DIFF IND YES
[2016-09-14 10:49] LABS: PLATELET ESTIMATE DECREASED (NORMAL)
[2016-09-14 10:50] LABS: ANISOCYTOSIS SL
[2016-09-16 12:51] LABS: URINE APPEARANCE CLEAR; URINE BILIRUBIN NEG (NEG); URINE BLOOD NEG (NEG); URINE COLOR DK YELLOW; URINE GLUCOSE >1000 MG/DL (NEG); URINE KETONE 2+ (NEG); URINE LEUKOCYTE ESTERASE NEG (NEG); URINE NITRATE NEG (NEG); URINE PH 7.5 (5-8); URINE PROTEIN NEG (NEG); URINE SPECIFIC GRAVITY 1.038 (1.003-1.035)
[2016-09-16 14:05] LABS: AMPHETAMINE NEG (NEG); BARBITURATES NEG (NEG); BENZODIAZEPINES POS (NEG); COCAINE NEG (NEG); MARIJUANA NEG (NEG); OPIATES NEG (NEG); TRICYCLIC ANTIDEPRESSANTS NEG (NEG); U METHADONE NEG (NEG)
[2016-09-17 13:03] LABS: TMH HEPATITIS B SURFACE AG -JH Negative (Negative); TMH HEPATITIS C AB - JH Negative (Negative)
== END 2016-09-20 12:45 | DRG 897 ==
LOC: P2S 01:12
PROVIDERS: Psychiatry & Neurology Psychiatry; Specialist
PROC: HZ2ZZZZ Detoxification Services for Substance Abuse Treatment (ICD-10-PCS; principal; 2016-09-14)
DX: F10.29 Alcohol dependence with unspecified alcohol-induced disorder (principal); D69.6 Thrombocytopenia, unspecified; K27.9 Peptic ulcer, site unspecified, unspecified as acute or chronic, without hemorrhage or perforation; E11.9 Type 2 diabetes mellitus without complications; F17.210 Nicotine dependence, cigarettes, uncomplicated; Z79.84 Long term (current) use of oral hypoglycemic drugs
CPT/HCPCS: 80053; 80307; 81003; 85025; 86592; 86803; 87340; 87806; J2060; J3486